=== PATIENT | male | born 1940 | race Caucasian/White ===

== ENCOUNTER 2016-07-05 12:59 | Inpatient (IN) | payer MEDICARE, OTHER ==
[~2016-07-05] VITALS: Ht 182.9 cm; Wt 95.0 kg
[~2016-07-05 12:59] MED LIST: ATIVAN 1MG T1 MG/TAB PO; COUMADIN 5MG5 MG/TAB PO; LEVOXYL0.075 MG PO; NEXIUM 40MG40 MG PO; PRIL40 PO; PRILOSEC 20MG20 MG PO; XANAX 1MG1 MG PO; ZESTRIL 20MG TA20 MG PO; ZOCOR 40MG40 MG PO
[2016-09-22] MEDS ORDERED: LOVENOX 100100 MG/ML SQ (09:31)
[2016-11-03] MEDS ORDERED: LOVENOX 100100 MG/ML SQ (07:12)
[2017-05-13] MEDS ORDERED: LOVENOX 100100 MG/ML SQ (09:27)
[2017-05-16] VITALS (12 sets, daily range): BP systolic 109–140; BP diastolic 60–81; PULSE 48–84; TEMP 96.7–97.5
[2017-05-16 06:06] LABS: INR 1.2 (0.8-3.0); PROTHROMBIN TIME 13.6 SECONDS (9.7-12.8)
[2017-05-17 05:00] VITALS: BP 134/86; PULSE 68; TEMP 97.8
[2017-05-17 06:59] LABS: HEMATOCRIT 38.1 % (42.0-52.0)
[2017-05-17 07:00] VITALS: BP 115/82; PULSE 73; TEMP 97.6
[2017-05-17 07:16] LABS: INR 1.1 (0.8-3.0); PROTHROMBIN TIME 12.8 SECONDS (9.7-12.8)
[2017-05-17 11:00] VITALS: BP 122/68; PULSE 73; TEMP 97.5
[2017-05-17 15:46] VITALS: BP 129/80; PULSE 117; TEMP 98.2
[2017-05-17 19:44] VITALS: BP 124/69; PULSE 73; TEMP 97.7
[2017-05-18 00:56] VITALS: BP 126/81; PULSE 74; TEMP 97.9
[2017-05-18 03:56] VITALS: BP 124/83; PULSE 73; TEMP 97.7
[2017-05-18 06:52] LABS: HEMOGLOBIN 12.5 g/dl (13.5-18.0)
[2017-05-18 06:54] LABS: HEMATOCRIT 36.7 % (42.0-52.0)
[2017-05-18 07:00] VITALS: BP 126/78; PULSE 76; TEMP 97.5
[2017-05-18 07:02] LABS: INR 1.1 (0.8-3.0)
[2017-05-18 10:35] VITALS: BP 124/61; PULSE 74; TEMP 97.6
[2017-05-18] MEDS ORDERED: NORCO 325 MG-7.1 TAB PO (14:53)
[2017-05-18] MEDS ORDERED: DAZIDOX10 MG PO (14:53)
[2017-05-18] MEDS ORDERED: TYLENOL 500MG500 MG PO (14:53)
[2017-05-18] MEDS ORDERED: COUMADIN 5MG5 MG/TAB PO (15:01)
[2017-05-18] MEDS ORDERED: ROXICODONE 55 MG/TAB PO (15:15)
[2017-05-18 15:23] VITALS: BP 119/70; PULSE 90; TEMP 97.6
== END 2017-05-18 15:42 | disposition home or self-care (01) | DRG 470 ==
LOC: JCC 09-08 07:30
PROVIDERS: Orthopaedic Surgery
PROC: 0SRD0J9 Replacement of Left Knee Joint with Synthetic Substitute, Cemented, Open Approach (ICD-10-PCS; principal; 2017-05-16 07:30)
DX: M17.12 Unilateral primary osteoarthritis, left knee (principal); Z87.891 Personal history of nicotine dependence; Z85.828 Personal history of other malignant neoplasm of skin; Z85.01 Personal history of malignant neoplasm of esophagus; I48.91 Unspecified atrial fibrillation; Z86.73 Personal history of transient ischemic attack (TIA), and cerebral infarction without residual deficits
CPT/HCPCS: A4314; A9284; C1713; C1776; J0690; J1100; J2250; J2405; J2704; J3010; J3260; J7120

== ENCOUNTER → 2016-09-02 | Outpatient (CLI) | payer MEDICARE, OTHER ==
[~2016-09-02] MED LIST changes: +LOVENOX 100100 MG/ML SQ
== END ==
LOC: COL.RAD 07:20
DX: K43.9 Ventral hernia without obstruction or gangrene (principal); Q79.59 Other congenital malformations of abdominal wall; Z90.49 Acquired absence of other specified parts of digestive tract
CPT/HCPCS: Q9967

== ENCOUNTER 2016-09-22 08:51 | Day surgery (SDC) | payer MEDICARE, OTHER ==
[2016-09-22] VITALS (14 sets, daily range): BP systolic 108–144; BP diastolic 59–86; PULSE 54–68; TEMP 97.3
[~2016-09-22] VITALS: Ht 182.9 cm; Wt 100.0 kg
[~2016-09-22 08:51] MED LIST changes: -LOVENOX 100100 MG/ML SQ
[2016-09-22] MEDS ORDERED: LOVENOX 100100 MG/ML SQ (09:31)
[2016-09-22 09:43] LABS: HEMATOCRIT 42.4 % (42.0-52.0); HEMOGLOBIN 14.5 g/dl (13.5-18.0); MEAN CELL VOLUME 101 fl (80.0-100.0); MEAN CORPUSCULAR HEMOGLOBIN 34 pg (27.0-31.0); MEAN CORPUSCULAR HGB CONC 34 g/dl (33.0-37.0); MEAN PLATELET VOLUME 11.3 fl (7.4-10.4); PLATELET COUNT 169 K/mm3 (130-400); RED BLOOD COUNT 4.22 M/mm3 (4.20-5.60); REDCELL DISTRIBUTION WIDTH-CV 14.6 % (11.5-14.5)
[2016-09-22 09:45] LABS: INR 1.3 (0.8-3.0); PROTHROMBIN TIME 14.1 SECONDS (9.7-12.8)
[2016-09-22 10:01] LABS: CALCIUM 8.8 mg/dL (8.4-10.2); CREATININE, serum 0.91 mg/dL (0.66-1.25); POTASSIUM 3.7 mmol/L (3.4-5.0)
== END 2016-09-22 17:27 | disposition home or self-care (01) ==
LOC: COL.CAR 08:51
PROVIDERS: Internal Medicine Cardiovascular Disease
DX: I25.89 Other forms of chronic ischemic heart disease (principal); I10 Essential (primary) hypertension; R94.39 Abnormal result of other cardiovascular function study; I48.91 Unspecified atrial fibrillation; Z79.01 Long term (current) use of anticoagulants; E78.5 Hyperlipidemia, unspecified; Z86.73 Personal history of transient ischemic attack (TIA), and cerebral infarction without residual deficits; Z85.01 Personal history of malignant neoplasm of esophagus
CPT/HCPCS: C1760; C1769; C1894; J2250; J3010; Q9967

== ENCOUNTER 2016-11-03 06:20 | Day surgery (SDC) | payer MEDICARE, OTHER ==
[2016-11-03] VITALS (11 sets, daily range): BP systolic 94–144; BP diastolic 56–87; PULSE 57–83; TEMP 97.1–97.8
[~2016-11-03] VITALS: Ht 183.2 cm; Wt 105.8 kg
[~2016-11-03 06:20] MED LIST changes: +LOVENOX 100100 MG/ML SQ
[2016-11-03] MEDS ORDERED: LOVENOX 100100 MG/ML SQ (07:12)
[2016-11-03 07:56] LABS: INR 1.3 (0.8-3.0); PROTHROMBIN TIME 14.2 SECONDS (9.7-12.8)
[2016-11-04 02:29] VITALS: BP 119/67; PULSE 65; TEMP 98
[2016-11-04 06:27] VITALS: BP 132/85; PULSE 85; TEMP 98
[2016-11-04 07:11] LABS: HEMATOCRIT 41.9 % (42.0-52.0); HEMOGLOBIN 14.2 g/dl (13.5-18.0)
[2016-11-04 07:19] LABS: CALCIUM 8.8 mg/dL (8.4-10.2); CREATININE, serum 0.78 mg/dL (0.66-1.25); POTASSIUM 3.9 mmol/L (3.4-5.0)
[2016-11-04 10:01] VITALS: BP 134/73; PULSE 83; TEMP 97.9
[2016-11-04 13:25] VITALS: BP 143/82; PULSE 79; TEMP 97.8
== END 2016-11-04 13:40 | disposition home or self-care (01) ==
LOC: SURG 06:20 → SDCO 06:20 → INPTSU 06:20 → SDCO 08:30 → EDSTATUS 08:30 → SURG 08:30 → INPTSU 12:55 → SURG 12:55 → SDCO 11-04 13:40 → SURG 11-04 13:40
PROVIDERS: Registered Nurse; Surgery
DX: K43.2 Incisional hernia without obstruction or gangrene (principal); K66.0 Peritoneal adhesions (postprocedural) (postinfection); I48.2 Chronic atrial fibrillation; I10 Essential (primary) hypertension; E78.00 Pure hypercholesterolemia, unspecified; K21.9 Gastro-esophageal reflux disease without esophagitis; M19.90 Unspecified osteoarthritis, unspecified site; E03.9 Hypothyroidism, unspecified; Z86.73 Personal history of transient ischemic attack (TIA), and cerebral infarction without residual deficits; Z79.01 Long term (current) use of anticoagulants; Z85.01 Personal history of malignant neoplasm of esophagus; Z90.49 Acquired absence of other specified parts of digestive tract; Z87.891 Personal history of nicotine dependence; Z96.698 Presence of other orthopedic joint implants
CPT/HCPCS: OP; A9284; C1713; C1781; J0360; J0690; J1100; J1170; J1650; J1800; J2405; J2704; J2710; J7030; J7120

== ENCOUNTER → 2017-05-03 | Outpatient (CLI) | payer MEDICARE, OTHER ==
[2017-05-03 11:20] LABS: HIV 1/2 Antibodies Non-Reactive; HIV-1p24 Antigen Non-Reactive
== END ==
LOC: COL.LAB 10:12
PROVIDERS: Orthopaedic Surgery
DX: Z01.812 Encounter for preprocedural laboratory examination (principal); M25.862 Other specified joint disorders, left knee